=== PATIENT | female | born 1950 | race Two or more races ===

== ENCOUNTER 2021-04-15 22:23 | Emergency (ER) | payer OTHER ==
[~2021-04-15] VITALS: Ht 167.6 cm; Wt 73.9 kg
[2021-04-15] MEDS ORDERED: [UNRECOGNIZED DRUG - OTHER] (22:34)
[2021-04-15] MEDS ORDERED: ZYRTEC10 M3 (22:41)
[2021-04-15] MEDS ORDERED: SEROQUEL50 MG (22:41)
== END 2021-04-16 20:54 | disposition home or self-care (01) ==
LOC: ER 22:23
DX: N20.1 Calculus of ureter (principal)

== ENCOUNTER 2021-07-06 06:07 | Day surgery (SDC) | payer OTHER ==
[~2021-07-06 06:07] MED LIST: CATAFLAM; CATAFLAN 50MG; DICLOFENAC POTASSIUM 50 MG PO; INDERAL PO; SEROQUEL50 MG; ZYRTEC10 M3; [UNRECOGNIZED DRUG - OTHER]
== END 2021-07-06 13:50 | disposition home or self-care (01) ==
LOC: CIR.AMB 06:07
PROVIDERS: ATTEND Urology
DX: N20.1 Calculus of ureter (principal); N13.5 Crossing vessel and stricture of ureter without hydronephrosis; Z20.822 Contact with and (suspected) exposure to COVID-19